=== PATIENT | male | born 1960 | race Caucasian/White ===

== ENCOUNTER 2021-08-09 07:00 | Day surgery (SDC) | payer MEDICARE, MEDICAID ==
[~2021-08-09] VITALS: Ht 160 cm; Wt 90.7 kg
[2021-08-09] MEDS ORDERED: MEPERIDINE 100 MG INJ. 100 MG/ML VIAL ONE (07:30)
[2021-08-09] MEDS ORDERED: fentaNYL CITRATE/PF 100 MCG/2 ML AMP ONE (07:30)
[2021-08-09] MEDS: MIDAZOLAM HCL 5 MG/5 ML VIAL ONE ×2 (10:16→10:18)
[2021-08-09 13:44] VITALS: BP_SYST 119
== END 2021-08-09 11:15 | disposition home or self-care (01) ==
LOC: SDS 07:00 → SMU 07:02 → SDS 11:15
PROVIDERS: ATTEND Internal Medicine
DX: Z12.11 Encounter for screening for malignant neoplasm of colon (principal); K57.30 Diverticulosis of large intestine without perforation or abscess without bleeding; K64.8 Other hemorrhoids; Z20.822 Contact with and (suspected) exposure to COVID-19; Z79.899 Other long term (current) drug therapy
CPT/HCPCS: 36415; 45378; 82962; 99152; G0378; J2175; J2250; U0003; J3010